=== PATIENT | male | born 1995 | race Two or more races ===

== ENCOUNTER 2024-01-27 08:00 | Emergency (ER) | payer MEDICAID, OTHER ==
[~2024-01-27] VITALS: Ht 177.8 cm; Wt 84.0 kg
--- NOTE | 2024-01-27 08:18 | ED.PDOC ---
History of Present Illness HPI Comments 28M presents to the ER w/ no prior Hx associated to the c/c of dizziness. EMS report that the pt stated on eating something new last night and after started to have dizziness, OBRIEN and /D. EMS state that the pt on scene has an accucheck of 112. Pt reports on the same symptoms happening in the past. Pt notes on also having bodily pains. Social Hx of vape use, and marijuana use,m but denies alcohol use. Family Hx of [place]. Denies chills, fever, N/V, SOB, CP or other associated symptoms, modifiers, or recent injuries at this time. Chief Complaint: Dizziness Time Seen by MD: 08:10 Reviewed Notes: Nurses Notes, Instructional Manager Notes, Medications, Allergies Allergies: Coded Allergies: NO KNOWN ALLERGIES (Unverified , 01/27/24) Home Meds Active Scripts Ondansetron Odt 4MG Tab (ZOFRAN PO) 4 Mg Tb, 4 MG PO Q8HP PRN for 5 Days, #15 TA B ODT TAB-DISSOLVE IN MOUTH, THEN SWALLOW Prov:ARIES DAIGLE MD 01/27/24 Metronidazole (Flagyl) 500 Mg Tab, 1 TAB PO BID, #14 TAB Prov:ARIES DAIGLE MD 01/27/24 Levofloxacin Hemihydrate (LEVAQUIN 500 MG) 500 Mg Tab, 1 TAB PO DAILY, #7 TAB Prov:ARIES DAIGLE MD 01/27/24 Information Source: Patient, Emergency Med Personnel Mode of Arrival: EMS Severity: Moderate Timing: Hours Duration: Since onset, Hours Prehospital treatment: None Associated signs and symptoms Vomiting, dehydration Past Medical History PAST MEDICAL HISTORY: Denies Surgical History: Denies all surgeries Family History Family History: Family hx of heart [place] Social History Smoker: Other (Vape) Alcohol: Denies ETOH Use Drugs: Marijuana Lives In: Home Constitutional: denies: chills, diaphoresis, fatigue, fever, malaise, sweats, weakness, others EENTM: denies: blurred vision, double vision, ear bleeding, ear discharge, ear drainage, ear pain, ear ringing, eye pain, eye redness, hearing loss, mouth pain, mouth swelling, nasal discharge, nose bleeding, nose congestion, nose pain, photophobia, tearing, throat pain, throat swelling, voice changes, others Respiratory: denies: cough, hemoptysis, orthopnea, SOB at rest, shortness of breath, SOB with excertion, stridor, wheezing, others Cardiovascular: denies: chest pain, dizzy spells, diaphoresis, Dyspnea on exertion, edema, irregular heart beat, left arm pain, lightheadedness, palpitations, PND, syncope, others Gastrointestinal: reports: diarrhea; denies: abdomen distended, abdominal pain, blood streaked bowels, constipated, dysphagia, difficulty swallowing, hematemesis, melena, nausea, poor appetite, poor fluid intake, rectal bleeding, rectal pain, vomiting, others Genitourinary: denies: burning, dysuria, flank pain, frequency, hematuria, incontinence, penile discharge, penile sore, pain, testicle pain, testicle swelling, urgency, others Neurological: reports: dizziness, headache; denies: fainting, left sided numbness, left sided weakness, numbness, paresthesia, pre-existing deficit, right sided numbness, right sided weakness, seizure, speech problems, tingling, tremors, weakness, others Musculoskeletal: denies: back pain, gout, joint pain, joint swelling, muscle pain, muscle stiffness, neck pain, others Integumetry: denies: bruises, change in color, change in hair/nails, dryness, laceration, lesions, lumps, rash, wounds, others Allergic/Immunocompromised: denies: Difficulty Healing, Frequent Infections, Hives, Itching, others Hematologic/Lymphatic: denies: anemia, blood clots, easy bleeding, easy bruising, swollen glands, others Endocrine: denies: excessive hunger, excessive sweating, excessive thirst, excessive urination, flushing, intolerance to cold, intolerance to heat, unexplained weight gain, unexplained weight loss, others Psychiatric: denies: anxiety, bipolar disorder, depression, hopeless, panic disorder, schizophrenia, sleepless, suicidal, others All Other Systems: Reviewed and Negative Physical Exam General Appearance: Moderate Distress HEENT: Normal ENT Inspection, Pharynx Normal, TMs Normal Neck: Full Range of Motion, Non-Tender, Normal, Normal Inspection Respiratory: Chest Non-Tender, Lungs Clear, No Accessory Muscle Use, No Respiratory Distress, Normal Breath Sounds Cardiovascular: No Edema, No JVD, No Murmur, No Gallop, Normal Peripheral Pulses, Regular Rate/Rhythm Breast Exam: Deferred Gastrointestinal: Diffuse, No Organomegaly, No Pulsatile Mass, Normal Bowel Sounds, Soft, Tenderness Genitalia: Deferred Pelvic: Deferred Rectal: Deferred Extremities: No calf tenderness, Normal capillary refill, Normal inspection, Normal range of motion, Non-tender, No pedal edema Musculoskeletal : Apperance: Normal Neurologic: Alert, auto 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 Was a procedure done?: No EKG EKG : Pulse Rate (adult): 91 [place]: Normal Cardiac Rhythm: NSR Block: None ST: Nonsp Differential Dx Considerations may include: Generalized weakness, electrolyte imbalance, dehydration, gastroenteritis X-Ray, Labs, Meds, VS Vital Signs Date Time Temp Pulse Resp B/P (MAP) Pulse Ox O2 Delivery O2 Flow Rate FiO2 01/27/24 10:18 98.2 84 20 107/62 (77) 96 98.2 01/27/24 09:46 91 01/27/24 08:12 98.3 92 16 114/72 (86) 99 01/27/24 08:05 91 Lab Test 01/27/24 08:37 Range/Units White Blood Count 8.5 4.4-10.8 10^3/uL Red Blood Count 4.75 4.5-5.90 10^6/uL Hemoglobin 15.1 13.5-17.5 g/dL Hematocrit 44.6 41.0-53.0 % Mean Corpuscular Volume 94.0 80.0-100.0 fL Mean Corpuscular Hemoglobin 31.9 28.0-32.0 pg Mean Corpuscular Hemoglobin Concent 34.0 32.0-36.0 g/dL Red Cell Distribution Width 12.7 11.8-14.3 % Platelet Count 242 140-450 10^3/uL Mean Platelet Volume 7.6 6.9-10.8 fL Neutrophils (%) (Auto) 37.0-80.0 % Lymphocytes (%) (Auto) 10.0-50.0 % Monocytes (%) (Auto) 0.0-12.0 % Basophils (%) (Auto) 0.0-2.0 % Neutrophils # (Auto) 1.6-8.6 10 ^3/uL Lymphocytes # (Auto) 0.4-5.4 10 ^3/uL Monocytes # (Auto) 0-1.3 10 ^3/uL Differential Total Cells Counted 100.0 100 Neutrophils % (Manual) 83 H 37.0-80.0 Band Neutrophils % (Manual) 7 Lymphocytes % (Manual) 4 L 10.0-50.0 Monocytes % (Manual) 6 0-12 Eosinophils % (Manual) 0 0-7 Basophils % (Manual) 0 0.0-2.0 Metamyelocytes % (manual) 0 Myelocytes % (Manual) 0 Promyelocytes % (Manual) 0 Blast Cells % (Manual) 0 Reactive Lymphocytes 0 Platelet Estimate Adequate Red Blood Cell Morphology Normal Sodium Level 140 136-145 mmol/L Potassium Level 3.8 3.5-5.1 mmol/L Chloride Level 108 H 98-107 mmol/L Carbon Dioxide Level 23 20-31 mmol/L Anion Gap 9 5-15 Blood Urea Nitrogen 15 9-23 mg/dL Creatinine 1.06 0.700-1.30 mg/dL Glomerular Filtration Rate Calc 97 >90 mL/min BUN/Creatinine Ratio 14.2 10.0-20.0 Serum Glucose 104 74-106 mg/dL Calcium Level 9.0 8.7-10.4 mg/dL Total Bilirubin 0.6 0.2-1.0 mg/dL Aspartate Amino Transferase (AST) 16 13-40 U/L Alanine Aminotransferase (ALT) 24 7-40 U/L Alkaline Phosphatase 56 46-116 U/L Total Protein 6.9 5.7-8.2 g/dL Albumin 4.3 3.2-4.8 g/dL Plasma/Serum Blood Alcohol < 3.0 <10 mg/dL Current Medications Medications (Trade) Dose Ordered Sig/Vanessa Route Start Time Stop Time Status Last Admin Sodium Chloride 500 ml @ 500 mls/hr Q1H ONCE IVB 01/27/24 08:30 01/27/24 09:29 DC 01/27/24 08:33 Prochlorperazine Edisylate (Compazine Inj) 10 mg ONCE ONCE IV 01/27/24 08:30 01/27/24 08:31 DC 01/27/24 08:33 Pantoprazole Sodium (Protonix) 40 mg ONCE ONCE IV 01/27/24 08:30 01/27/24 08:31 DC 01/27/24 08:33 Ketorolac Tromethamine (Toradol Injection) 30 mg ONCE ONCE IV 01/27/24 09:00 01/27/24 09:01 DC 01/27/24 09:00 Ceftriaxone Sodium/Dextrose 50 ml @ 50 mls/hr ONCE ONCE IV 01/27/24 09:30 01/27/24 10:29 01/27/24 09:45 Metronidazole 100 ml @ 100 mls/hr ONCE ONCE IV 01/27/24 09:30 01/27/24 10:29 01/27/24 09:45 CT scan of the abdomen and pelvis shows: IMPRESSION: 1. Distended fluid-filled small bowel loops with no focal transition point to suggest small bowel obstruction. Likely ileus or enteritis in the appropriate clinical setting. 2. Scattered colonic diverticula without adjacent inflammatory changes to suggest diverticulitis. 3. No evidence of acute appendicitis. Appendicoliths are seen within the lumen of the appendix. IV Hep-Lock was established The patient was given normal saline at a 500 cc bolus. The patient was given Compazine 10 mg IV push for the nausea and vomiting The patient was also given Protonix 40 mg IV push For the pain the patient was given ketorolac 30 mg IV push The patient was seen by their primary care doctor (Dr. Vazquez) in the emergency department's. At this time, the patient will be started on vancomycin and Flagyl The patient will return to the emergency department's condition worsens. Images Reviewed?: Images reviewed and evaluated by me Time of 1ST Reevaluation: 08:40 Reevaluation 1ST: Unchanged Patient Education/Counseling: Diagnosis, Treatment, Prognosis, Need For Follow Up Family Education/Counseling: No Family Present Departure 1 Departure Time of Disposition: 10:24 Impression: Primary Impression: Gastroenteritis Additional Impression: Vomiting Qualified Codes: R11.2 - Nausea with vomiting, unspecified Disposition: HOME / SELF CARE / HOMELESS Condition: Fair e-Prescriptions Ondansetron Odt 4MG Tab (ZOFRAN PO) 4 Mg Tb 4 MG PO Q8HP PRN for 5 Days, #15 TAB ODT TAB-DISSOLVE IN MOUTH, THEN SWALLOW Prov: ARIES DAIGLE MD 01/27/24 Metronidazole (Flagyl) 500 Mg Tab 1 TAB PO BID, #14 TAB Prov: ARIES DAIGLE MD 01/27/24 Levofloxacin Hemihydrate (LEVAQUIN 500 MG) 500 Mg Tab 1 TAB PO DAILY, #7 TAB Prov: ARIES DAIGLE MD 01/27/24 Discharged With: Self Critical Care Note Critical Care Time?: No Stability Stability form required: No Heart Score Heart Score: Heart Score Response (Comments) Value History N/A 0 EKG N/A 0 Age N/A 0 Risk Factors N/A 0 Troponin N/A 0 Total 0 I personally scribed for ARIES DAIGLE MD ([email or web address]) on 01/27/24 at 08:18. Electronically submitted by Paul Leiva ([email or web address]). ARIES DAIGLE MD Jan 27, 2024 08:18
[2024-01-27] MEDS: PROCHLORPERAZINE EDISYLATE 5 MG/ML 2ML VIAL IV ONE (08:33)
[2024-01-27] MEDS: PANTOPRAZOLE 40 MG/10 ML VIAL INJ IV ONE (08:33)
[2024-01-27] MEDS: SODIUM CHLORIDE 0.9% 500 ML IVB ONE (08:33)
[2024-01-27 08:42] LABS: Hematocrit 44.6 % (41.0-53.0); Hemoglobin 15.1 g/dL (13.5-17.5); Mean Corpuscular Hemoglobin 31.9 pg (28.0-32.0); Platelet Count (auto) 242 10^3/uL (140-450); Red Blood Cells 4.75 10^6/uL (4.5-5.90); Red Cell Distribution Width 12.7 % (11.8-14.3); White Blood Cell 8.5 10^3/uL (4.4-10.8)
[2024-01-27 08:44] LABS: Basophils % (manual) 0 (0.0-2.0); Blast Cells 0; Eosinophils % (manual) 0 (0-7); Metamyelocytes % 0; Myelocytes % 0; Promyelocytes % 0; Reactive Lymphocytes 0
[2024-01-27 08:54] LABS: Band Neutrophils % (manual) 7; Lymphocytes % (manual) 4 (10.0-50.0); Monocytes % (manual) 6 (0-12); Platelet Estimate Adequate
--- NOTE | 2024-01-27 08:54 | DVH ---
CLINICAL INFORMATION: 28 years old, Male; pain. TECHNIQUE: Axial CT images of the abdomen and pelvis were obtained without IV contrast. Coronal and sagittal reformatted images were obtained, reviewed, and stored. Evaluation of the parenchymal organs is limited without IV contrast. Evaluation of the bowel and mesentery is limited without oral contra st. All CT scans at this medical facility are performed using dose modulation techniques as appropria te to a performed exam including the following: Automated exposure control was utilized; adjustment o f the MA and/or KV according to patient size; and use of iterative reconstruction technique. CTDIvol = 10.46 mGy DLP = 710.19 mGy-cm COMPARISON: None FINDINGS: Lung bases: Lung bases are clear. Liver: Grossly unremarkable in its noncontrast enhanced appearance. No abnormal density or focal les ion identified. Biliary: No calcified gallstones or biliary ductal dilatation. Spleen: Unremarkable. Pancreas: Grossly unremarkable in its noncontrast enhanced appearance. Adrenal glands: Unremarkable. No mass. Kidneys: No hydronephrosis. No renal or ureteral calculi. Aorta/Vascular: No aneurysm or significant calcification. Retroperitoneum: No mass or lymphadenopathy. Bowel/mesentery: Nonspecific mildly distended fluid-filled small bowel loops with no focal transition point to suggest small bowel obstruction. Appendix is visualized and appears normal in caliber with no periappendiceal stranding to suggest acute appendicitis. Appendicoliths seen within the lumen of the appendix. Scattered colonic diverticula without adjacent inflammatory changes visualized to sugge st diverticulitis. Pelvic organs: Grossly unremarkable. Bladder: Unremarkable. No mass. Abdominal wall: No mass or hernia. Bones: No acute fracture or suspicious intraosseous lesion. IMPRESSION: 1. Distended fluid-filled small bowel loops with no focal transition point to suggest small bowel obs truction. Likely ileus or enteritis in the appropriate clinical setting. 2. Scattered colonic diverticula without adjacent inflammatory changes to suggest diverticulitis. 3. No evidence of acute appendicitis. Appendicoliths are seen within the lumen of the appendix. 4. Additional nonacute findings as detailed above.
[2024-01-27 08:55] LABS: RBC Morphology Normal
[2024-01-27] MEDS: KETOROLAC TROMETH 30 MG/ML 1ML VIAL IV ONE (09:00)
[2024-01-27 09:10] LABS: Alanine Aminotransferase 24 U/L (7-40); Albumin 4.3 g/dL (3.2-4.8); Alkaline Phosphatase 56 U/L (46-116); Anion Gap 9 (5-15); Aspartate Aminotransferase 16 U/L (13-40); BUN/Creatinine Ratio 14.2 (10.0-20.0); Bilirubin, Total 0.6 mg/dL (0.2-1.0); Blood Alcohol < 3.0 mg/dL (<10); Blood Urea Nitrogen 15 mg/dL (9-23); Carbon Dioxide 23 mmol/L (20-31); Chloride 108 mmol/L (98-107); Glucose 104 mg/dL (74-106); Potassium 3.8 mmol/L (3.5-5.1); Sodium 140 mmol/L (136-145); Total Protein 6.9 g/dL (5.7-8.2)
[2024-01-27] MEDS: cefTRIAXone 2GM/50ML D5W 50 ML IV ONE (09:45)
[2024-01-27] MEDS: metroNIDAZOLE 500MG/100ML 100 ML IV ONE (09:45)
[2024-01-27 10:18] VITALS: BP 107/62; PULSE 84; RESP 20; TEMP 98.2; O2SAT 96
[2024-01-27] MEDS ORDERED: METR-344 PO (10:20)
[2024-01-27] MEDS ORDERED: LEVO500T91 PO (10:20)
[2024-01-27] MEDS ORDERED: ZOFR4T PO (10:21)
[2024-01-27 10:25] VITALS: PULSE 91
--- NOTE | 2024-01-29 13:18 | ECG ---
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
== END 2024-01-27 10:52 | disposition home or self-care (01) ==
LOC: EDBD 08:00 → ER 08:00
DX: K52.9 Noninfective gastroenteritis and colitis, unspecified (principal); R11.10 Vomiting, unspecified; F12.90 Cannabis use, unspecified, uncomplicated; Z79.899 Other long term (current) drug therapy
CPT/HCPCS: 36415; 74176; 80053; 80320; 85007; 85027; 96361; 96365; 96368; 96375; 99285; J0696; J0780; J1885; J2470; J3490; J7040